=== PATIENT | female | born 1980 | race Caucasian/White ===

== ENCOUNTER 2017-02-05 12:31 | Emergency (ER) | payer MEDICAID, OTHER ==
[~2017-02-05] VITALS: Ht 160 cm; Wt 73.9 kg
[~2017-02-05 12:31] MED LIST: METF500T PO
[2017-02-05 13:01] VITALS: BP 97/77
--- NOTE | 2017-02-05 13:30 | NUR ---
PT BIB WITH C/O NECK PAIN BEHIND BOTH EARS 8/10 X 1WK WITH DIZZINESS WITH NAUSEA NO V/D; MID STERNAL PAIN @7PM STERNAL PAIN; JOI BREAST PAIN WHEN AMBULATING FAST.SKIN IS PINK/WARM/DRY; AAOX4 WITH EVEN AND STEADY GAIT; LUNGS CLEAR BL; HR EVEN AND REGULAR; PT DENIES ANY FEVER,COUGH AT THIS TIME; PATIENT STATES PAIN OF 9/10 AT THIS TIME;PATIENT POSITIONED FOR COMFORT; HOB ELEVATED; BEDRAILS UP X2; BED DOWN.
[2017-02-05 14:03] LABS: BASOPHILS # (AUTO) 0.1 K/uL (0.00-0.22); BASOPHILS % (AUTO) 0.7 % (0.0-2.0); EOSINOPHILS # (AUTO) 0.1 K/uL (0-0.4); EOSINOPHILS % (AUTO) 1.6 % (0.0-4.0); HEMATOCRIT 40.6 % (36-48); HEMOGLOBIN 13.7 g/dL (12.0-16.0); LYMPHOCYTES # (AUTO) 2.2 K/uL (2.5-16.5); LYMPHOCYTES % (AUTO) 26.8 % (20.5-51.1); MEAN CORPUSCULAR HEMOGLOBIN 32 pg (27-31); MEAN CORPUSCULAR HGB CONC 34 g/dL (33-37); MEAN CORPUSCULAR VOLUME 94 fL (80-94); MONOCYTES # (AUTO) 0.5 K/uL (0.8-1.0); MONOCYTES % (AUTO) 5.7 % (1.7-9.3); NEUTROPHILS # (AUTO) 5.4 K/uL (1.8-7.7); NEUTROPHILS % (AUTO) 65.2 % (42.2-75.2); PLATELET COUNT (AUTO) 200 K/uL (140-450); RED CELL DISTRIBUTION WIDTH 12.8 % (11.6-13.7); WHITE BLOOD COUNT (AUTO) 8.3 K/uL (4.8-10.8)
[2017-02-05 14:21] LABS: ANION GAP 10.4 (8-16); CALCIUM 7.9 mg/dL (8.5-10.1); CARBON DIOXIDE 28.6 mmol/L (21-32); CREATININE 0.6 mg/dL (0.6-1.3)
[2017-02-05 14:27] LABS: ALBUMIN 2.8 g/dL (3.4-5.0); TOTAL BILIRUBIN 0.3 mg/dL (0.0-1.0); TOTAL PROTEIN, SERUM 6.3 g/dL (6.4-8.2)
[2017-02-05 14:29] LABS: PARTIAL THROMBOPLASTIN TIME 22.2 secs (22-35.6); PROTHROMBIN TIME 9.9 secs (10.8-13.4)
--- NOTE | 2017-02-05 14:39 | NUR ---
PT RESTING ON BED;NO ACUTE DISTRESS NOTED;WILL CONTIUE TO MONITOR PT.
--- NOTE | 2017-02-05 15:18 | NUR ---
WENT TO CT SCAN ACCOMPANIED BY TECH.
--- NOTE | 2017-02-05 16:10 | NUR ---
PT RESTING ON BED;NO ACUTE DISTRESS NOTED;ALL MONITORS IN PLACED.
[2017-02-05 17:10] VITALS: BP 113/82
== END 2017-02-05 17:09 | disposition home or self-care (01) ==
LOC: MED 12:31
DX: R07.89 Other chest pain (principal); M43.6 Torticollis; E11.9 Type 2 diabetes mellitus without complications; F19.90 Other psychoactive substance use, unspecified, uncomplicated; Z88.5 Allergy status to narcotic agent; Z88.6 Allergy status to analgesic agent; Z88.3 Allergy status to other anti-infective agents; Z91.018 Allergy to other foods
CPT/HCPCS: 36415; 71010; 71275; 80053; 81002; 81025; 82009; 82948; 83880; 84484; 85025; 85379; 85610; 85730; 93005; 99285; Q0092; Q9967

== ENCOUNTER 2017-03-06 14:33 | Emergency (ER) | payer MEDICAID ==
[~2017-03-06] VITALS: Ht 160 cm; Wt 76.9 kg
[2017-03-06 14:38] VITALS: BP 90/65
--- NOTE | 2017-03-06 15:05 | NUR ---
Patient ambulated to bed 6 with family. RN evaluating patient at bedside.
--- NOTE | 2017-03-06 15:15 | NUR ---
36/F c/o left jaw/facial pain x1 week. Pt c/o pain to left jaw radiating up to left side of face, throbbing, intermittent, 10/10. Denies fever or chills. Denies N/V/D. No facial droop noted. Palliative Care Coordinator and pushes strong and equal bilaterally. VSS.
[2017-03-06 16:11] VITALS: BP 101/62
--- NOTE | 2017-03-06 16:13 | NUR ---
Patient discharged with v/s stable. Written and verbal after care instructions given and explained. Patient alert, oriented and verbalized understanding of instructions. Ambulatory with steady gait. All questions addressed prior to discharge. ID band removed. Patient advised to follow up with PMD. Rx of norco and amoxicillin given. Patient educated on indication of medication including possible reaction and side effects. Opportunity to ask questions provided and answered.
== END 2017-03-06 16:13 | disposition home or self-care (01) ==
LOC: MED 14:33
DX: K04.7 Periapical abscess without sinus (principal); E11.9 Type 2 diabetes mellitus without complications; Z91.018 Allergy to other foods; Z88.8 Allergy status to other drugs, medicaments and biological substances; Z79.84 Long term (current) use of oral hypoglycemic drugs
CPT/HCPCS: 82948; 99283

== ENCOUNTER 2017-05-31 17:49 | Inpatient (IN) | payer MEDICAID ==
[~2017-05-31] VITALS: Ht 162.6 cm; Wt 58.5 kg
[2017-05-31 17:54] VITALS: BP 187/65
--- NOTE | 2017-05-31 19:03 | NUR ---
PT PRESENTS TO ER FOR EVALUATION OF ABSCESS TO MID-BACK.SCAB NOTED AT THE BACK OF THE PT; HX OF DM.PT STATES SHE FALL IN THE BATHROOM. DENIES N/V/D; SKIN IS PINK/WARM/DRY; AAOX4 WITH EVEN AND STEADY GAIT; LUNGS CLEAR BL; HR EVEN AND REGULAR; PT DENIES ANY FEVER, CP, SOB, OR COUGH AT THIS TIME; PATIENT STATES PAIN OF 10/10 AT THIS TIME;PATIENT POSITIONED FOR COMFORT; HOB ELEVATED; BEDRAILS UP X2; BED DOWN.ALL MONITORS IN PLACED; ER MD MADE AWARE OF PT STATUS.
[2017-05-31] MEDS ORDERED: NACL 0.9% 2,000 ML IV ONE (19:09)
[2017-05-31] MEDS ORDERED: PIPERACILLIN/TAZOBACTAM 3.375 GM in DEXTROSE 5% 50 ML IV ONE (19:10)
[2017-05-31] MEDS ORDERED: CLINDAMYCIN 600 MG in DEXTROSE 5% 50 ML IV ONE (19:10)
--- NOTE | 2017-05-31 19:25 | NUR ---
Pt report given to ISRAEL ARDON. Transfer of care at this time.
--- NOTE | 2017-05-31 19:30 | NUR ---
Patient noted to have existing wounds upon arrival to ER. Photos taken of wound and placed in chart. Wound covered with dressing. Physician informed.
[2017-05-31] MEDS ORDERED: PIPERACILLIN/TAZOBACTAM 3.375 GM VIAL IV ONE (19:34)
[2017-05-31 19:49] LABS: HEMATOCRIT 38.5 % (36-48); MEAN CORPUSCULAR HEMOGLOBIN 31 pg (27-31); MEAN CORPUSCULAR HGB CONC 34 g/dL (33-37); MEAN CORPUSCULAR VOLUME 93 fL (80-94); PLATELET COUNT (AUTO) 227 K/uL (140-450); RED BLOOD CELL COUNT(AUTO) 4.17 MIL/uL (4.20-5.40); RED CELL DISTRIBUTION WIDTH 12.3 % (11.6-13.7); WHITE BLOOD COUNT (AUTO) 22.7 K/uL (4.8-10.8)
[2017-05-31] MEDS ORDERED: LIDOCAINE 1% ***ER ONLY *** 10 MG/ML VIAL INJ ONE (19:50)
[2017-05-31] MEDS ORDERED: ONDANSETRON 4 MG/2 ML VIAL IVP ONE (19:50)
[2017-05-31] MEDS ORDERED: HYDROmorphone 1 MG/ML AMP IVP ONE ×2 (19:50→20:30)
[2017-05-31] MEDS ORDERED: CLINDAMYCIN 600 MG/4 ML VIAL ONE (20:01)
[2017-05-31 20:12] LABS: LYMPHOCYTES % (MANUAL) 7 % (20-46); MONOCYTES % (MANUAL) 7 % (5-12)
[2017-05-31 20:13] LABS: PROTHROMBIN TIME 11.2 secs (10.8-13.4)
[2017-05-31 20:20] LABS: ANION GAP 18.3 (8-16); CARBON DIOXIDE 16.9 mmol/L (21-32); CREATININE 0.8 mg/dL (0.6-1.3); POTASSIUM 4.2 mmol/L (3.5-5.1); TOTAL BILIRUBIN 0.5 mg/dL (0.0-1.0)
[2017-05-31] MEDS ORDERED: INSULIN HUMAN REGULAR 100 UNITS/ML 10 ML VIAL IVP ONE (20:30)
[2017-05-31] MEDS ORDERED: NACL 0.9% 1,000 ML IV ONE ×2 (20:35→22:25)
[2017-05-31] MEDS ORDERED: INSULIN HUMAN REGULAR 100 UNITS in NACL 0.9% 100 ML IV ONE (20:50)
[2017-05-31 21:02] LABS: APPEARANCE,URINE SL CLOUDY (CLEAR); BILIRUBIN,URINE NEGATIVE (NEGATIVE); BLOOD, URINE 1+ (NEGATIVE); LEUKOCYTE ESTERASE ,URINE NEGATIVE (NEGATIVE); NITRITE, URINE NEGATIVE (NEGATIVE); PH,URINE 5.5 (5.0-9.0); UGLUCOSE 3+ (NEGATIVE)
[2017-05-31 21:03] LABS: COLOR,URINE STRAW (YELLOW)
[2017-05-31 21:15] LABS: RBC,URINE NONE SEEN /HPF (0-5)
[2017-05-31 21:16] LABS: WBC,URINE 0-5 (RARE) /HPF (0-5); YEAST,URINE Many /HPF (None Seen)
--- NOTE | 2017-05-31 21:25 | NUR ---
PT AT CT, VIA SMITH ACCOMPANIED BY NEW PATIENT ESCORT
--- NOTE | 2017-05-31 21:30 | NUR ---
Patient will be admitted to care of DR VAUGHAN. Admited to TELE 112A. Will go to room 112A. Belongings list completed. Report to SALLIE WOOD . TOLD SALLIE PT IS AT CT AND WAS ON INSULIN DRIP, PER MD DR LU REPEAT BLOOD SUGAR BEFORE ADMIT TO FLOOR AND D/C INSULIN DRIP. Addendum: 05/31/17 at 2202 by MEDND Patient will be admitted to care of DR VAUGHAN. Admited to TELE 112A. Will go to room 112A. Belongings list completed. Report to SALLIE WOOD . JANIS SALLIE PT IS AT CT AND WAS ON INSULIN DRIP, PER MD DR LU REPEAT CHEMISTRY AND BLOOD SUGAR BEFORE ADMIT TO FLOOR AND D/C INSULIN DRIP
[2017-05-31] MEDS: NACL 0.9% 1,000 ML IV SCH (22:38)
[2017-05-31 22:39] LABS: ANION GAP 12.2 (8-16); CREATININE 0.7 mg/dL (0.6-1.3); POTASSIUM 4.2 mmol/L (3.5-5.1)
[2017-05-31] MEDS ORDERED: DEXTROSE 50% 50 ML SYR IVP PRN (22:40)
[2017-05-31] MEDS ORDERED: ACETAMINOPHEN 325 MG TAB PO PRN (22:40)
[2017-05-31] MEDS ORDERED: ONDANSETRON 4 MG/2 ML VIAL IVP PRN (22:40)
[2017-05-31] MEDS ORDERED: LORazepam 2 MG/ML VIAL IVP PRN (22:40)
--- NOTE | 2017-05-31 22:50 | NUR ---
ASSUME CARE, PT ARRIVED ON UNIT ON GURNEY, PT STABLE, NO DISTRESS NOTED, AAOX4, IV TO THE R AC 18G SL PATENT, SKIN S/P INCISION AND DRAINAGE OF ABSCESS IN ER ON THE R UPPER BACK, MULTIPLE SCABS ON BACK, ALL SAFETY PRECAUTION ARE MET, INITIAL ASSESSMENT DONE, CALL LIGHT WITHIN REACH, WILL CONTINUE TO MONITOR.
[2017-05-31 23:32] VITALS: BP 93/61
[2017-05-31] MEDS: HYDROcodone/APAP 5/325 MG 1 TAB TAB PO PRN (23:55)
--- NOTE | 2017-05-31 23:55 | NUR ---
PAIN MEDICATION AND IVF GIVEN PER MD ORDER, PT SLEEPING, EASY TO AROUSE, NO DISTRESS NOTED, CALL LIGHT WITHIN REACH. WILL CONTINUE TO MONITOR.
[2017-06-01] VITALS: BP 118/77
--- NOTE | 2017-06-01 01:35 | NUR ---
AFTER PAIN MEDICATION, PT SLEEPING, NO DISTRESS NOTED, CALL LIGHT WITHIN REACH, WILL CONTINUE TO MONITOR.
[2017-06-01 04:05] VITALS: BP 91/60
[2017-06-01] MEDS ORDERED: CLINDAMYCIN 600 MG/4 ML VIAL ONE (04:39)
[2017-06-01] MEDS ORDERED: PIPERACILLIN/TAZOBACTAM 3.375 GM VIAL IV ONE (04:40)
--- NOTE | 2017-06-01 04:50 | NUR ---
MEDICATION GIVEN PER MD ORDER, PT TOLERATED WELL, PT SLEEPING, EASY TO AROUSE, NO DISTRESS NOTED, CALL LIGHT WITHIN REACH. WILL CONTINUE TO MONITOR.
[2017-06-01] MEDS ORDERED: CLINDAMYCIN 600 MG in DEXTROSE 5% 50 ML IV SCH (05:00)
[2017-06-01] MEDS ORDERED: PIPERACILLIN/TAZOBACTAM 3.375 GM in DEXTROSE 5% 50 ML IV SCH (05:00)
[2017-06-01] MEDS: BLOOD GLUCOSE MONITORING 1 DEV DEV FS SCH ×4 (05:42→20:20)
[2017-06-01] MEDS: INSULIN LISPRO SLIDING SCALE 100 UNITS/ML VIAL SUBQ PRN ×4 (05:47→20:23)
--- NOTE | 2017-06-01 06:07 | NUR ---
PT BLOOD SUGAR 283, 6UNITS OF INSULIN WAS GIVEN TO THE R UA, PT TOLERATED WELL, PT SLEEPING, NO DISTRESS NOTED, CALL LIGHT WITHIN REACH.
--- NOTE | 2017-06-01 07:19 | NUR ---
GAVE BEDSIDE REPORT TO DAY SHIFT NURSE, ASHOK PT STABLE, NO DISTRESS NOTED.
--- NOTE | 2017-06-01 07:20 | NUR ---
PT REPORT RECEIVED AT THE BEDSIDE. DRESSING NOTED ON THE BACK. DRESSING IS CLEAN AND DRY. IV NOTED ON THE RIGHT AC, RUNNING NS 100ML/HR. PT SHOWED NO S/S OF ACUTE DISTRESS. BED LOW, CALL LIGHT WITHIN REACH.
[2017-06-01 07:33] LABS: HEMATOCRIT 34.5 % (36-48); MEAN CORPUSCULAR HEMOGLOBIN 32 pg (27-31); MEAN CORPUSCULAR HGB CONC 35 g/dL (33-37); MEAN CORPUSCULAR VOLUME 92 fL (80-94); PLATELET COUNT (AUTO) 199 K/uL (140-450); RED BLOOD CELL COUNT(AUTO) 3.75 MIL/uL (4.20-5.40); RED CELL DISTRIBUTION WIDTH 12.6 % (11.6-13.7); WHITE BLOOD COUNT (AUTO) 27.7 K/uL (4.8-10.8)
[2017-06-01] MEDS: metFORMIN 500 MG TAB PO SCH ×2 (08:19→20:24)
[2017-06-01] MEDS: PIOGLITAZONE 30 MG TAB PO SCH (08:19)
[2017-06-01] MEDS: HYDROcodone/APAP 5/325 MG 1 TAB TAB PO PRN (08:19)
--- NOTE | 2017-06-01 09:05 | NUR ---
WOUND CARE EVALUATION NOTES: REASON FOR EVALUATION: BACK CELLULITIS COMPLETE SKIN ASSESSMENT DONE ON THIS 36 Y/O FE MALE PATIENT FROM HOME TO [facility], WITH INITIAL DIAGNOSIS OF BACK PAIN. PAST MEDICAL HISTORY INCLUDE DIABETES. ALL ABOVE INFORMATION WAS OBTAINED FROM THE ADMISSION H&P. AND PT. LABS ARE WBC 22.7, H/H 13.0/38.5 GLUCOSE 274, ALBUMIN 2.0 PT/INR 11.2/1.1. CURRENT MEDS INCLUDE PIPERACILLIN, CLINDAMYCIN, METFORMIN AND MORPHINE SULFATE. PATIENT IS AWAKE, ALERT, AND ABLE TO FOLLOW COMMANDS. SKIN WARM TO TOUCH WNL,TOENAILS SHORT AND CLEAN, BLE NO EDEMA, NO HAIR GROWTH AND BILATERAL PEDAL PULSES PRESENT. PLAN OF CARE DISCUSSED WITH PT. AND PRIMARY NURSE INTEGUMENTARY: MULTIPLE TATTOO TO DIFFERENT BODY PART, SKIN INTACT MULTIPLE DRY SMALL OLD HEALED SCAB SÁNCHEZ POSTERIOR BACK OLD HEALED SURGICAL SCAR MIDLINE BACK AROUND T1-T2 MIDLINE BACK TOWARD LEFT, ERYTHREDEMA, MOIST AND WARM TO TOUCH, REDNESS AREA MEASURED 10X10 CM, S/P I&D WAS DONE AT ER 05/31/2014 PT. REFUSES TO BE ASSESSED FRONT AND LOWER PARTS OF BODY INCLUDES ANUPAM-AREA. PT CLAIMS NO SKIN PROBLEM RECOMMENDATIONS: -SURGEON CONSULT -CLEANSE UPPER MIDLINE BACK CELLULITIS WITH NS. PAT DRY, APPLY ADAPTIC DRESSING AND COVER WITH ISLAND DRESSING QD AND PRN IF SOILING -TURN AND REPOSITION PATIENT Q2H TO LEFT AND RIGHT SIDE ONLY TO OFFLOAD UPPER BACK -CT TO SPINAL AREA WAS DONE -PRESSURE REDISTRIBUTION SURFACE THERAPY -KEEP SKIN CLEAN AND DRY AT ALL TIMES. RECOMMENDATIONS DISCUSSED WITH PRIMARY RN WILL FOLLOW UP PATIENT Q 7 -10 DAYS AND PRN. PLEASE CONTACT WOUND CARE NURSE FOR ANY CONCERNS AND CHANGES IN WOUND CONDITION
[2017-06-01 09:18] VITALS: BP 99/67
[2017-06-01 09:29] LABS: LYMPHOCYTES % (MANUAL) 5 % (20-46); MONOCYTES % (MANUAL) 7 % (5-12)
--- NOTE | 2017-06-01 09:35 | NUR ---
WOUND DRESSING CHANGED BY WOUND CARE NURSE HOLDEN AT BEDSIDE
[2017-06-01] MEDS: NACL 0.9% 1,000 ML IV SCH ×2 (09:50→18:38)
--- NOTE | 2017-06-01 09:52 | NUR ---
PATIENT HAS BEEN SCREENED AND CATEGORIZED HIGH NUTRITION RISK. PATIENT WILL BE SEEN WITHIN 1-2 DAYS OF ADMISSION. 06/01/17-06/02/[address]
--- NOTE | 2017-06-01 11:35 | NUR ---
CM NOTE PER AIR FILLER KEREN, REVIEWS SHOULD ONLY BE SENT TO [employer], TRACKING# [id number], FAX# [phone], ATTN: JUDITH BARBOSA # [phone]. INITIAL REVIEW FAXED TO [employer] TRACKING# [id number], FAX# [phone], ATTN: JUDITH BARBOSA # [phone].
[2017-06-01 12:10] VITALS: BP 92/59
[2017-06-01] MEDS: GAUZE TP SCH (13:00)
[2017-06-01] MEDS: COMPOSITE DRESSING TP SCH (13:00)
[2017-06-01] MEDS: MILD SOAP AND WATER TP SCH (13:00)
[2017-06-01] MEDS ORDERED: PIPER/TAZO 3.375GM/D5W PREMIX 50 ML IV SCH (13:00)
[2017-06-01] MEDS ORDERED: VANCOMYCIN PER PHARMACY MC PRN (13:10)
--- NOTE | 2017-06-01 13:27 | NUR ---
06/01/17 RD INITIAL ASSESSMENT COMPLETED PLEASE REFER TO NUTRITION ASSESSMENT UNDER CARE ACTIVITY FOR ESTIMATED NUTRITIONAL NEEDS. 1. CONTINUE 60 GMS CONSISTENT CARBOHYDRATE DIET 2. VITAMIN C FOR WOUND HEALING, 500 MG/DL X2 DAILY 3. PROVIDE NUTRITION EDUCATION NEEDED 4. ENCOURAGE INCREASED PO INTAKE TO TOLERANCE 5. RD TO FOLLOW UP WITHIN 2-3 DAYS; HIGH RISK ZENAIDA VASQUEZ, DIANN
[2017-06-01] MEDS: VANCOMYCIN HCL 750 MG in DEXTROSE 5% 250 ML IV SCH ×2 (14:51→21:12)
[2017-06-01 16:00] VITALS: BP 106/71
[2017-06-01] MEDS: MORPHINE SULFATE 2 MG/ML SYR IVP PRN ×2 (16:05→20:24)
--- NOTE | 2017-06-01 19:22 | NUR ---
PT REPORT GIVEN TO LEAVE SPECIALIST AT BEDSIDE. PT IS IN STABLE CONDITION WITHOUT ACUTE DISTRESS.
--- NOTE | 2017-06-01 19:30 | NUR ---
RECEIVED REPORT FROM DAY RN. PATIENT RESTING IN BED, DENIES PAIN AT THIS TIME. NO S/S OF DISTRESS NOTED, RESPIRATION EVEN AND UNLABORED, IV PATENT AND INTACT, INFUSING NS AT 100ML/HR, PLAN OF CARE DISCUSSED, VERBALIZED UNDERSTANDING. CALL LIGHT WITHIN REACH, SAFETY MEASURE ENSURED, WILL CONTINUE TO MONITOR.
[2017-06-01 19:58] VITALS: BP 94/57
--- NOTE | 2017-06-01 22:18 | NUR ---
CHANGED IV DRESSING, IV PATENT AND INTACT. PATIENT RESTING IN BED, NO S/S OF DISTRESS NOTED, WILL CONTINUE TO MONITOR.
[2017-06-02] VITALS: BP 102/65
--- NOTE | 2017-06-02 00:05 | NUR ---
PATIENT IS SLEEPING, NO S/S OF ACUTE DISTRESS NOTED, RESPIRATION EVEN AND UNLABORED, CALL LIGHT WITHIN REACH, SAFETY MEASURE ENSURED, WILL CONTINUE TO MONITOR.
[2017-06-02] MEDS: MILD SOAP AND WATER TP SCH ×3 (01:00→21:22)
--- NOTE | 2017-06-02 01:08 | NUR ---
DRESSING CHANGED, WOUND ASSESSMENT DONE, WILL CONTINUE TO MONITOR.
[2017-06-02] MEDS: MORPHINE SULFATE 2 MG/ML SYR IVP PRN (01:47)
--- NOTE | 2017-06-02 01:52 | NUR ---
PATIENT STATED," PAIN 7/10 AT THE INCISION SITE." BP 96/59, HR 112. MORPHINE GIVEN ORDERED. WILL CONTINUE TO MONITOR.
--- NOTE | 2017-06-02 03:55 | NUR ---
VITAL SIGNS WITHIN NORMAL RANGE, NO CHANGE IN CONDITION. PATIENT IS SLEEPING AT THIS TIME. WILL CONTINUE TO MONITOR.
[2017-06-02 03:56] VITALS: BP 91/58
[2017-06-02] MEDS: NACL 0.9% 1,000 ML IV SCH ×3 (04:43→23:59)
[2017-06-02] MEDS: VANCOMYCIN HCL 750 MG in DEXTROSE 5% 250 ML IV SCH (05:07)
--- NOTE | 2017-06-02 05:16 | NUR ---
VANCOMYCIN STARTED, PATIENT TOLERATED WELL. RESPIRATION EVEN AND UNLABORED, WILL CONTINUE TO MONITOR.
[2017-06-02 05:49] LABS: HEMATOCRIT 32.3 % (36-48); HEMOGLOBIN 11.3 g/dL (12.0-16.0); MEAN CORPUSCULAR HEMOGLOBIN 32 pg (27-31); MEAN CORPUSCULAR HGB CONC 35 g/dL (33-37); MEAN CORPUSCULAR VOLUME 92 fL (80-94); PLATELET COUNT (AUTO) 208 K/uL (140-450); RED BLOOD CELL COUNT(AUTO) 3.52 MIL/uL (4.20-5.40); RED CELL DISTRIBUTION WIDTH 12.5 % (11.6-13.7); WHITE BLOOD COUNT (AUTO) 19.6 K/uL (4.8-10.8)
[2017-06-02 06:00] LABS: ANION GAP 15.3 (8-16); CARBON DIOXIDE 19.3 mmol/L (21-32); CREATININE 0.5 mg/dL (0.6-1.3); POTASSIUM 3.6 mmol/L (3.5-5.1)
[2017-06-02] MEDS: BLOOD GLUCOSE MONITORING 1 DEV DEV FS SCH ×4 (06:32→20:09)
[2017-06-02] MEDS: INSULIN LISPRO SLIDING SCALE 100 UNITS/ML VIAL SUBQ PRN ×4 (06:34→20:13)
--- NOTE | 2017-06-02 06:58 | NUR ---
PATIENT IS SLEEPING AT THIS TIME. NO S/S OF DISTRESS NOTED, RESPIRATION EVEN AND UNLABORED, CALL LIGHT WITHIN REACH, SAFETY MEASURE ENSURED, WILL CONTINUE TO MONITOR.
[2017-06-02 07:15] LABS: LYMPHOCYTES % (MANUAL) 5 % (20-46); MONOCYTES % (MANUAL) 5 % (5-12)
--- NOTE | 2017-06-02 07:15 | NUR ---
RECEIVED PT REPORT AT BEDSIDE FROM BIOINFORMATICIAN. PT IS AOX4. PT SHOWS NO S/S OF ACUTE DISTRESS ON RA. PT DENIES DIZZINESS. PT IS ON TELE MONITOR. IV NOTED ON THE R AC WITH NS INFUSING WELL. DRESSING ON THE BACK IS SATURATED WITH BROWN DRAINAGE AND WITH MILD ODOR. PT C/O ABOUT BACK PAIN 02/15, WILL MEDICATE. BED LOWERED, WITH CALL LIGHT WITHIN REACH. WILL CONTINUE TO MONITOR.
--- NOTE | 2017-06-02 07:20 | NUR ---
ENDORSED PLAN OF CARE TO DAY RN. PATIENT IS IN STABLE CONDITION. NO S/S OF DISTRESS.
[2017-06-02 08:05] VITALS: BP 96/65
--- NOTE | 2017-06-02 08:08 | NUR ---
SPOKE WITH DR RIVERA AND INFORMED HIM ABOUT THE CONSULTATION ORDER. ORDERS PATIENT TO BE NPO. TO SEE THE PATIENT LATER TODAY
--- NOTE | 2017-06-02 08:17 | NUR ---
NOTIFIED DR CARRANZA ABOUT THE CONSULT ORDER. PATIENT'S FACE SHEET FAXED
[2017-06-02] MEDS: ASCORBIC ACID 500 MG TAB PO SCH (08:27)
[2017-06-02] MEDS: PIOGLITAZONE 30 MG TAB PO SCH (08:28)
[2017-06-02] MEDS: HYDROcodone/APAP 5/325 MG 1 TAB TAB PO PRN ×3 (08:28→23:59)
[2017-06-02] MEDS: metFORMIN 500 MG TAB PO SCH ×2 (08:28→20:09)
--- NOTE | 2017-06-02 08:40 | NUR ---
WOUND CLEANSED WITH NS. PATTED DRY WITH GAUZE. WOUND COVERED ADAPTIC DRESSING, GAUZE AND COMPOSITE DRESSING.
--- NOTE | 2017-06-02 09:22 | NUR ---
JUDITH NOTE CONCURRENT REVIEW FAXED TO [facility]# [id number], FAX# [phone], ATTN: JUDITH BARBOSA # [phone]. LEFT SEVERAL MESSAGES ON THE VOICEMAIL OF JUDITH BARBOSA SINCE YESTERDAY, NO CALL BACK.
--- NOTE | 2017-06-02 11:45 | NUR ---
PT SEEN BY DR RIVERA. PER DR RIVERA, KEEP PT NPO. POSSIBLE I/D TODAY AT 1930. PT NOTIFIED AND VERBALIZED UNDERSTANDING. CONSENT OBTAINED AND FILED IN THE CHART
[2017-06-02 12:00] VITALS: BP 92/58
[2017-06-02] MEDS: GAUZE TP SCH ×2 (13:07→21:23)
[2017-06-02] MEDS: COMPOSITE DRESSING TP SCH ×2 (13:07→21:23)
[2017-06-02] MEDS: VANCOMYCIN 1GM/DEXT 5% PREMIX 200 ML IV SCH ×2 (15:59→21:10)
[2017-06-02 16:00] VITALS: BP 94/57
--- NOTE | 2017-06-02 16:30 | NUR ---
WOUND CLEANSED W/ NS, PATTED DRY W/ GAUZE. SEROSANGUINEOUS DRAINAGE AND MILD ODOR. COVERED WOUND W/ ADAPTIC, GAUZE, AND COMPOSITE DRESSING.
--- NOTE | 2017-06-02 19:27 | NUR ---
ENDORSED PT TO COMMERCIAL AIRLINE PILOT. PT REPORT GIVEN AT BEDSIDE. PT IS SLEEPING AND IN STABLE CONDITION.
--- NOTE | 2017-06-02 19:30 | NUR ---
RECEIVED REPORT FROM AM NURSE. PT RESTING IN BED, AOX4, AMBULATORY, ABLE TO VERBALIZE NEEDS. PT DENIES CHEST PAIN, SOB OR S/S OF ACUTE DISTRESS. PT C/O PAIN, PT ALREADY MEDICATED BY AM NURSE, WILL MONITOR PAIN. DISEASE CASE MANAGER IN PLACE. DRESSING TO BACK IS SLIGHTLY SOILED, WILL PERFORM WOUND CARE AND CHANGE DRESSING ORDERED. IV ACCESS ASYMPTOMATIC, PATENT AND INTACT. IVF INFUSING WELL. DISCUSSED AND REVIEWED PLAN OF CARE WITH PT. PT INSTRUCTED TO BE NPO AT MIDNIGHT. PT VERBALIZED UNDERSTANDING. ALL NEEDS MET. SAFETY MEASURES ENSURED. CALL LIGHT WITHIN REACH. WILL CONTINUE TO MONITOR.
[2017-06-02 20:00] VITALS: BP 103/60
--- NOTE | 2017-06-02 20:14 | NUR ---
ADMINISTERED DUE MED WITH EDUCATION. ADMINISTERED INSULIN COVERAGE WITH EVENING SNACK AND EDUCATION. PT VERBALIZED UNDERSTANDING, TOLERATED MEDS WELL. ALL NEEDS MET. IVF INFUSING WELL. SAFETY MEASURES ENSURED. CALL LIGHT WITHIN REACH. WILL CONTINUE TO MONITOR.
--- NOTE | 2017-06-02 21:20 | NUR ---
ADMINISTERED DUE MED WITH EDUCATION. PT VERBALIZED UNDERSTANDING, TOLERATED MEDS WELL. PT ABLE TO AMBULATE INDEPENDENTLY TO RESTROOM WITH STEADY GAIT. DRESSING TO BACK WOUND IS SOILED, WOUND IS CLEANSED AND DRESSING IS CHANGED ORDERED. ALL NEEDS MET. IVPB INFUSING WELL. SAFETY MEASURES ENSURED. CALL LIGHT WITHIN REACH. WILL CONTINUE TO MONITOR.
[2017-06-03] VITALS: BP 100/62
--- NOTE | 2017-06-03 00:02 | NUR ---
PT C/O PAIN. SEE PAIN ASSESSMENT. ADMINISTERED NORCO PO PRN ORDERED. TEMP 100.6, COOLING MEASURES ENSURED, ADMINISTERED TYLENOL PO PRN ORDERED. ALL NEEDS MET. IVF INFUSING WELL. SAFETY MEASURES ENSURED. CALL LIGHT WITHIN REACH. WILL CONTINUE TO MONITOR.
--- NOTE | 2017-06-03 03:31 | NUR ---
PT SLEEPING COMFORTABLY, AROUSABLE BY NAME, NO S/S OF ACUTE DISTRESS. TEMP 98, CONDITION STABLE. ALL NEEDS MET. IVF INFUSING WELL. SAFETY MEASURES ENSURED. CALL LIGHT WITHIN REACH. WILL CONTINUE TO MONITOR.
[2017-06-03 04:00] VITALS: BP 94/56
[2017-06-03] MEDS: VANCOMYCIN 1GM/DEXT 5% PREMIX 200 ML IV SCH ×3 (05:20→21:07)
[2017-06-03 05:44] LABS: HEMATOCRIT 34.4 % (36-48); HEMOGLOBIN 11.8 g/dL (12.0-16.0); MEAN CORPUSCULAR HEMOGLOBIN 32 pg (27-31); MEAN CORPUSCULAR HGB CONC 34 g/dL (33-37); MEAN CORPUSCULAR VOLUME 92 fL (80-94); PLATELET COUNT (AUTO) 238 K/uL (140-450); RED BLOOD CELL COUNT(AUTO) 3.76 MIL/uL (4.20-5.40); RED CELL DISTRIBUTION WIDTH 12.8 % (11.6-13.7); WHITE BLOOD COUNT (AUTO) 12.6 K/uL (4.8-10.8)
[2017-06-03 05:58] LABS: CARBON DIOXIDE 27.5 mmol/L (21-32); CREATININE 0.5 mg/dL (0.6-1.3); POTASSIUM 3.5 mmol/L (3.5-5.1)
[2017-06-03] MEDS: BLOOD GLUCOSE MONITORING 1 DEV DEV FS SCH ×5 (06:16→21:07)
[2017-06-03] MEDS: INSULIN LISPRO SLIDING SCALE 100 UNITS/ML VIAL SUBQ PRN ×4 (06:19→21:18)
--- NOTE | 2017-06-03 06:20 | NUR ---
INSULIN COVERAGE ADMINISTERED WITH EDUCATION. PT VERBALIZED UNDERSTANDING, TOLERATED MED WELL. ALL NEEDS MET. IVF INFUSING WELL. SAFETY MEASURES ENSURED. CALL LIGHT WITHIN REACH. WILL CONTINUE TO MONITOR.
--- NOTE | 2017-06-03 07:00 | NUR ---
DRESSING TO BACK IS SOILED WITH LARGE DRAINAGE, WOUND CARE PERFORMED AND DRESSING CHANGED ORDERED. PT TOLERATED WELL.
--- NOTE | 2017-06-03 07:12 | NUR ---
PT TAKEN TO OR BY OR NURSE AT THIS TIME.
[2017-06-03 07:16] LABS: LYMPHOCYTES % (MANUAL) 13 % (20-46); MONOCYTES % (MANUAL) 4 % (5-12)
--- NOTE | 2017-06-03 07:30 | NUR ---
PT OFF UNIT TO SURGERY.
--- NOTE | 2017-06-03 07:30 | NUR ---
ENDORSED PLAN OF CARE TO AM NURSE. PT IS IN THE OR AT THIS TIME.
[2017-06-03] MEDS ORDERED: MIDAZOLAM 2 MG/2 ML VIAL ONE (07:48)
[2017-06-03] MEDS ORDERED: fentaNYL 0.05 MG/ML VIAL ONE (07:48)
[2017-06-03] MEDS ORDERED: MEPERIDINE 50 MG/ML SYR ONE (07:49)
[2017-06-03] MEDS ORDERED: PROPOFOL 200 MG/20 ML VIAL IV ONE (08:30)
[2017-06-03] MEDS ORDERED: SEVOFLURANE 250 ML BTL INH ONE (08:30)
[2017-06-03] MEDS: metFORMIN 500 MG TAB PO SCH ×2 (09:00→21:07)
[2017-06-03] MEDS: PIOGLITAZONE 30 MG TAB PO SCH (09:00)
[2017-06-03] MEDS: ASCORBIC ACID 500 MG TAB PO SCH (09:00)
[2017-06-03] MEDS ORDERED: NACL 0.9% 1,000 ML IV SCH (09:16)
[2017-06-03] MEDS ORDERED: ONDANSETRON 4 MG/2 ML VIAL IVP PRN (09:20)
[2017-06-03] MEDS ORDERED: MEPERIDINE 25 MG/ML SYR IVP PRN (09:20)
[2017-06-03] MEDS ORDERED: BLOOD GLUCOSE MONITORING 1 DEV DEV FS ONE (09:20)
[2017-06-03] MEDS ORDERED: HYDROmorphone 1 MG/ML AMP IVP PRN (09:20)
[2017-06-03] MEDS ORDERED: diphenhydrAMINE 50 MG/ML VIAL IVP PRN (09:20)
--- NOTE | 2017-06-03 09:24 | NUR ---
CM NOTE CONCURRENT REVIEW FAXED TO [employer] [facility]# [id number], FAX# [phone], ATTN: JUDITH BARBOSA # [phone].
[2017-06-03] MEDS ORDERED: LIDOCAINE 1% 50 ML ONE (09:26)
[2017-06-03 10:20] VITALS: BP 104/69
--- NOTE | 2017-06-03 10:20 | NUR ---
RECEIVED PT BACK FROM SURGERY IN STABLE CONDITION S/O INCISION AND DRAINAGE OF BACK ABSCESS. PT AAOX4. NO SOB NOTED. NO C/O PAIN AT THIS TIME. IV TO RT HAND PATENT AND INTACT. CHEST CLEAR. ABDOMEN SOFT, BOWEL SOUNDS PRESENT. DRESSING TO UPPER BACK DRY AND INTACT. INSTRUCTED PT TO TURN TO SIDES Q2 HRS. NO EDEMA NOTED ON BLE. INSTRUCTED PT CALL FOR ASSISTANCE, CALL LIGHT WITHIN REACH. PT VERBALIZED UNDERSTANDING.
[2017-06-03 12:00] VITALS: BP 98/65
--- NOTE | 2017-06-03 12:25 | NUR ---
ICE CHIPS TOLERATED
[2017-06-03] MEDS: MILD SOAP AND WATER TP SCH ×2 (13:00)
[2017-06-03] MEDS: COMPOSITE DRESSING TP SCH (13:00)
[2017-06-03] MEDS: GAUZE TP SCH (13:00)
--- NOTE | 2017-06-03 13:25 | NUR ---
06/03/17 RD FOLLOW-UP ASSESSMENT COMPLETED 1. CONTINUE CLEAR LIQUID DIET 2. CONTINUE VITAMIN C 3. WHEN MEDICALLY FEASIBLE, INITIATE 60 GMS CONSISTENT CARBOHYDRATE DIET 4. RD TO FOLLOW UP WITHIN 2-3 DAYS; HIGH RISK ZENAIDA VASQUEZ RD
[2017-06-03 16:00] VITALS: BP_SYST 148; BP_SYST 95; BP_DIAS 71; BP_DIAS 76
--- NOTE | 2017-06-03 16:47 | NUR ---
pATIENT TOLERATING CLEAR LIQUIDS NO NAUSEA AND VOMITING NOTED , DIET ADVANCED ORDERED.
[2017-06-03] MEDS: HYDROcodone/APAP 5/325 MG 1 TAB TAB PO PRN ×2 (17:40→23:42)
--- NOTE | 2017-06-03 19:27 | NUR ---
PT RESTING. NO SOB NOTED. NO SIGNS OF PAIN AT THIS TIME. WILL ENDORSE TO NEXT SHIFT NURSE FOR CONTINUITY OF CARE.
--- NOTE | 2017-06-03 19:30 | NUR ---
RECEIVED REPORT FROM AM NURSE. PT RESTING IN BED, AOX4, AMBULATORY, ABLE TO VERBALIZE NEEDS. PT DENIES CHEST PAIN, SOB OR S/S OF ACUTE DISTRESS. PT C/O PAIN ON BACK, PT ALREADY MEDICATED BY AM NURSE, WILL MONITOR PAIN. DRESSING TO BACK IS SATURATED WITH LARGE DRAINAGE, MARKED AREA WITH BLACK MARKER, WILL MONITOR SPREAD. PT REPORTS BEING ABLE TO TOLERATE FOOD, REPORTS NO NAUSEA/VOMITING. IV ACCESS ASYMPTOMATIC, PATENT AND INTACT. IVF INFUSING WELL. DISCUSSED AND REVIEWED PLAN OF CARE WITH PT. PT VERBALIZED UNDERSTANDING. ALL NEEDS MET. SAFETY MEASURES ENSURED. CALL LIGHT WITHIN REACH. WILL CONTINUE TO MONITOR.
[2017-06-03 20:00] VITALS: BP 94/64
--- NOTE | 2017-06-03 21:18 | NUR ---
INSULIN COVERAGE ADMINISTERED WITH EVENING SNACK AND EDUCATION. ADMINISTERED DUE MEDS WITH EDUCATION, PT VERBALIZED UNDERSTANDING, TOLERATED MEDS WELL. ALL NEEDS MET. IVPB INFUSING WELL. SAFETY MEASURES ENSURED. CALL LIGHT WITHIN REACH. WILL CONTINUE TO MONITOR.
--- NOTE | 2017-06-03 23:42 | NUR ---
PT C/O PAIN ON BACK. SEE PAIN ASSESSMENT. ADMINISTERED NORCO PO PRN ORDERED WITH EDUCATION. PT VERBALIZED UNDERSTANDING, TOLERATED MED WELL. DUE WOUND CARE AND CLEANSING NOT PERFORMED AT THIS TIME DUE TO PT S/P I&D TODAY. DRESSING TO BACK IS DRY AND INTACT, WITH DRAINAGE OUTLINED, WILL MONITOR. ALL NEEDS MET. IVF INFUSING WELL, TKO. SAFETY MEASURES ENSURED. CALL LIGHT WITHIN REACH. WILL CONTINUE TO MONITOR.
[2017-06-04] VITALS: BP 105/68
[2017-06-04] MEDS: MILD SOAP AND WATER TP SCH ×2 (00:46→12:56)
--- NOTE | 2017-06-04 02:11 | NUR ---
PT SLEEPING COMFORTABLY, NO S/S OF ACUTE DISTRESS. ALL NEEDS MET. IVF INFUSING WELL, TKO. SAFETY MEASURES ENSURED. CALL LIGHT WITHIN REACH. WILL CONTINUE TO MONITOR.
[2017-06-04 05:44] LABS: BASOPHILS # (AUTO) 0.1 K/uL (0.00-0.22); BASOPHILS % (AUTO) 0.9 % (0.0-2.0); EOSINOPHILS # (AUTO) 0.1 K/uL (0-0.4); EOSINOPHILS % (AUTO) 1.4 % (0.0-4.0); HEMATOCRIT 32.6 % (36-48); HEMOGLOBIN 11.2 g/dL (12.0-16.0); LYMPHOCYTES # (AUTO) 1.6 K/uL (2.5-16.5); LYMPHOCYTES % (AUTO) 19.2 % (20.5-51.1); MEAN CORPUSCULAR HEMOGLOBIN 31 pg (27-31); MEAN CORPUSCULAR HGB CONC 34 g/dL (33-37); MEAN CORPUSCULAR VOLUME 91 fL (80-94); MONOCYTES # (AUTO) 0.4 K/uL (0.8-1.0); MONOCYTES % (AUTO) 5.4 % (1.7-9.3); NEUTROPHILS # (AUTO) 5.9 K/uL (1.8-7.7); NEUTROPHILS % (AUTO) 73.1 % (42.2-75.2); PLATELET COUNT (AUTO) 235 K/uL (140-450); RED BLOOD CELL COUNT(AUTO) 3.57 MIL/uL (4.20-5.40); RED CELL DISTRIBUTION WIDTH 12.8 % (11.6-13.7); WHITE BLOOD COUNT (AUTO) 8.1 K/uL (4.8-10.8)
[2017-06-04 06:08] LABS: ANION GAP 7.5 (8-16); CARBON DIOXIDE 28.8 mmol/L (21-32); CREATININE 0.5 mg/dL (0.6-1.3); POTASSIUM 3.3 mmol/L (3.5-5.1)
[2017-06-04] MEDS: VANCOMYCIN 1GM/DEXT 5% PREMIX 200 ML IV SCH ×3 (06:13→21:53)
[2017-06-04] MEDS: BLOOD GLUCOSE MONITORING 1 DEV DEV FS SCH ×4 (06:15→20:36)
[2017-06-04] MEDS: INSULIN LISPRO SLIDING SCALE 100 UNITS/ML VIAL SUBQ PRN ×4 (06:20→20:40)
--- NOTE | 2017-06-04 06:20 | NUR ---
INSULIN COVERAGE ADMINISTERED WITH EDUCATION. DUE MED ADMINISTERED WITH EDUCATION. PT VERBALIZED UNDERSTANDING, TOLERATED MEDS WELL. ALL NEEDS MET. IVPB INFUSING WELL. SAFETY MEASURES ENSURED. CALL LIGHT WITHIN REACH. WILL CONTINUE TO MONITOR.
--- NOTE | 2017-06-04 07:15 | NUR ---
ENDORSED PLAN OF CARE TO AM NURSE. CONDITION STABLE.
--- NOTE | 2017-06-04 07:16 | NUR ---
RECEIVED REPORT FROM METAL CANS SUPERVISOR NURSE SOPHIE AT BEDSIDE. INTRODUCED SELF AND UPDATED BOARD. PT IS LYING IN BED RIGHT NOW. BED IN LOW POSITION. CALL LIGHT WITHIN REACH. WILL CONTINUE WITH CURRENT PLAN OF CARE AND MONITOR PT.
[2017-06-04 08:00] VITALS: BP 107/69
[2017-06-04] MEDS: PIOGLITAZONE 30 MG TAB PO SCH (08:23)
[2017-06-04] MEDS: ASCORBIC ACID 500 MG TAB PO SCH (08:23)
[2017-06-04] MEDS: metFORMIN 500 MG TAB PO SCH ×2 (08:24→20:43)
[2017-06-04] MEDS: HYDROcodone/APAP 5/325 MG 1 TAB TAB PO PRN ×3 (08:24→21:53)
--- NOTE | 2017-06-04 08:24 | NUR ---
ADMINISTERED SCHEDULED MEDS TO PT. PROVIDED DM TEACHING AND MED SIDE EFFECTS INFORMATION. PT VERBALIZED UNDERSTANDING. PT STATED PAIN 6/10 ON BACK ADMINISTERED NORCO FOR PAIN. PROVIDED MED AND SIDE EFFECT TEACHING. PT TOLERATED MEDS WELL. NO COMPLAINTS AT THIS TIME. WILL CONTINUE TO MONITOR.
[2017-06-04] MEDS ORDERED: POTASSIUM CHLORIDE 10 MEQ TABER PO SCH (09:30)
[2017-06-04] MEDS: HYDROmorphone 1 MG/ML AMP IVP PRN (11:29)
--- NOTE | 2017-06-04 11:30 | NUR ---
CHECKED ON PT IN ROOM. PT AMBULATED TO BATHROOM WITH STEADY GAIT. PT DENIES PAIN AT THIS TIME. PT REQUESTED A SANDWICH FOR SNACK. INFORMED PT THAT SHE [facility] AND NO SANDWICH CAN BE GIVEN AT THIS TIME AND THAT LUNCH TRAY WILL BE ARRIVING. EDUCATED PT ON FOLLOWING DIET FOR BS CONTROL. PT VERBALIZED UNDERSTANDING. NO OTHER COMPLAINTS AT THIS TIME WILL CONTINUE TO MONITOR.
--- NOTE | 2017-06-04 12:40 | NUR ---
WOUND CARE RE- EVALUATION NOTES: REASON FOR RE-EVALUATION: S/P DEBRIDEMENT TO BACK CELLULITIS COMPLETE SKIN ASSESSMENT DONE ON THIS 36 Y/O FE MALE PATIENT FROM HOME TO [facility], WITH INITIAL DIAGNOSIS OF BACK PAIN. PAST MEDICAL HISTORY INCLUDE DIABETES. ALL ABOVE INFORMATION WAS OBTAINED FROM THE ADMISSION H&P. AND PT. LABS ARE WBC 8.1, H/H 11.2/32.6 GLUCOSE 275, ALBUMIN 2.0. CURRENT MEDS INCLUDE VANCOMYCIN METFORMIN AND HYDROMORPHONE. PATIENT IS AWAKE, ALERT, AND ABLE TO FOLLOW COMMANDS. SKIN WARM TO TOUCH WNL,TOENAILS SHORT AND CLEAN, BLE NO EDEMA, NO HAIR GROWTH AND BILATERAL PEDAL PULSES PRESENT. PLAN OF CARE DISCUSSED TO PRIMARY RN AND PT. WITH WOUND CARE INSTRUCTIONS GIVEN. PT VERBALIZES UNDERSTANDING INTEGUMENTARY: MULTIPLE TATTOO TO DIFFERENT BODY PART, SKIN INTACT MULTIPLE DRY SMALL OLD HEALED SCAB SÁ[place]HEZ POSTERIOR BACK OLD HEALED SURGICAL SCAR MIDLINE BACK AROUND T1-T2 MIDLINE BACK TOWARD LEFT,S/P DEBRIDEMENT SURGICAL INCISION WOUND 7X2.5X3 CM WITH UNDERMINING 9 O'CLOCK TO 3 O'CLOCK AND DEEPEST AT 10 O'CLOCK 4CM, WOUND BED RED, CLEAN WITH SMALL AMOUNT SANGUINOUS DRAINAGE, NO ODOR, PERIWOUND PALE PINK RECOMMENDATIONS: -CLEANSE UPPER MIDLINE BACK SURGICAL WOUND WITH NS. PAT DRY, PACK WITH IODOFORM AND APPLY Z-GUARD TO ANUPAM-WOUND, COVER WITH ADAPTIC DRESSING AND ABD PAD QD AND PRN IF SOILING -TURN AND REPOSITION PATIENT Q2H TO LEFT AND RIGHT SIDE ONLY TO OFFLOAD UPPER BACK -PRESSURE REDISTRIBUTION SURFACE THERAPY -KEEP SKIN CLEAN AND DRY AT ALL TIMES. -HOME HEALTH TO FOLLOW UP FOR WOUND CARE RECOMMENDATIONS DISCUSSED WITH PRIMARY RN AND METALS SALES REPRESENTATIVE Addendum: 06/04/17 at 1307 by Ruslan Chang RN (Grace) WOUND CARE QD X 2 WEEKS
[2017-06-04] MEDS: COMPOSITE DRESSING TP SCH (12:56)
[2017-06-04] MEDS: GAUZE TP SCH (12:56)
[2017-06-04] MEDS ORDERED: ABDOMINAL PAD TP PRN (13:10)
[2017-06-04] MEDS ORDERED: GAUZE TP PRN (13:10)
[2017-06-04] MEDS ORDERED: Z-GUARD PASTE TP PRN (13:10)
[2017-06-04] MEDS ORDERED: NON ADHERENT DRESSING TP PRN (13:10)
--- NOTE | 2017-06-04 13:39 | NUR ---
CM NOTE CONCURRENT REVIEW AND ORDER FOR [place] [facility] FOR WOUND CARE FAXED TO [facility]# [id number], FAX# [phone], ATTN: JUDITH GUERREROPADILLAABE BARBOSA PH# [phone]. SPOKE WITH JUDITH CAUSEY OF [facility] AND INFORMED HER OF [facility]OUND [facility]ARE ORDER. PER JUDITH CAUSEY, THEY DON'T HAVE MUCH CONTRACTED HOME HEALTH THAT SERVICE THE [facility]. SHE SAID TO CALL DIFFERENT HOME HEALTH AGENCIES AND ASK THEM IF THEY HAVE A CONTRACT WITH [facility]. CALLED THE FOLLOWING HOME HEALTH: *SPOKE WITH JORDAN OF [facility] PH# [phone] WHO SAID THEY HAVE NO CONTRACT WITH [facility] AND CANNOT TAKE THE PATIENT *SPOKE WITH [facility] PH# [phone] WHO SAID THEY DO NOT TAKE [facility] PATIENTS *SPOKE WITH PHILLY OF [facility] PH# [phone] WHO SAID THEY DO NOT TAKE [facility] PATIENTS *SPOKE WITH [facility] pH# [phone] AND SHE SAID THEY DO NOT TAKE [facility] PATIENTS CALLED BACK JUDITH CAUSEY OF [facility] TO REQUEST FOR A LIST OF THEIR CONTRACTED HOME HEALTH AGENCIES. RECEIVED FAX OF LIST OF HOME HEALTH. CALLED THE FOLLOWING HOME HEALTH ON THE LIST RECEIVED FROM JUDITH CAUSEY OF [facility]: *SPOKE WITH [facility] PH# [phone] WHO SAID THEY DO NOT ACCEPT [facility] PLAN *SPOKE WITH DONNA OF [facility] PH# [phone] WHO SAID THEY DO NOT TAKE [facility] *SPOKE WITH BONITA OF [facility] PH# [phone] AND SHE SAID THEY CAN TAKE THE PATIENT. FAXED HER THE FACESHEET, ORDER, PROCEDURE REPORT AND WOUND CARE NURSE NOTES AND INFORMED HER THAT [facility] JUDITH CAUSEY IS WAITING FOR THEM TO FAX THE REQUEST TO HER. INFORMED JUDITH RODRIGUES [facility] OF THE ACCEPTING HOME HEALTH AND SHE SAID SHE WILL FAX THE AUTHORIZATION TO [facility] ONCE SHE RECEIVES THE FAXED REQUEST FROM THEM. CHARGE NURSE MICHAEL AWARE AND CHARGE NURSE MICHAEL ALSO AWARE TO GIVE PATIENT WOUND CARE SUPPLIES WHEN DISCHARGED.
--- NOTE | 2017-06-04 15:04 | NUR ---
JUDITH BECKMAN RECEIVED A CALL FROM JUDITH CAUSEY OF [facility] AND SHE SAID SHE CANNOT AUTHORIZE THE HOME HEALTH BECAUSE IT'S THE MEDICAL GROUP'S RESPONSIBILITY. SHE GAVE ME THE NUMBER TO THE MEDICAL GROUP [facility]# [phone] AND TOLD ME TO CALL THE MEDICAL GROUP AND TELL THEM THAT THEY ARE THE ONE RESPONSIBLE FOR THE PATIENT'S HOME HEALTH. SPOKE WITH LAN OF [facility]# [phone] AND INFORMED HER THAT THERE WAS SO MUCH CONFUSION WITH THE PATIENT'S INSURANCE AND THAT WE JUST FOUND OUT THAT THE PATIENT HAS A MEDICAL GROUP AND THAT THEY ARE RESPONSIBLE FOR THE HOME HEALTH. PER LAN, [facility] IS RESPONSIBLE TO GIVE THE AUTHORIZATION FOR THE HOME HEALTH AND NOT THE MEDICAL GROUP SINCE PATIENT IS [place] AND DOES NOT LIVE IN THE [facility]. CALLED JUDITH CAUSEY OF [facility] SEVERAL TIMES BUT UNABLE TO SPEAK TO HER. LEFT MESSAGE ON JUDITH CAUSEY VOICEMAIL INFORMING HER THAT PER LAN OF [facility], IT IS [facility]'S RESPONSIBILITY TO GIVE THE AUTHORIZATION FOR PATIENT'S HOME HEALTH. JUDITH CAUSEY AWARE OF THE NUMBER TO THE CHARGE NURSE ON THE NURSING FLOOR WHERE PATIENT IS. JUDITH STOKES AWARE. CHARGE NURSE MICHAEL AWARE THAT PATIENT'S FAMILY NEEDS TO BE TAUGHT HOW TO DO WOUND CARE.
[2017-06-04 16:00] VITALS: BP 97/64
--- NOTE | 2017-06-04 16:40 | NUR ---
RECEIVED A CALL FROM BONITA FROM [facility]. SHE SAID THEY HAVE NO NURSE TO DO DAILY DRESSING CHANGED. PHONE [phone].
--- NOTE | 2017-06-04 17:00 | NUR ---
PT STATED PAIN 6/10 ON BACK. ADMINISTERED [facility] FOR PAIN. PT TOLERATED MEDS WELL. INFORMED PT OF WOUND CARE TEACHING TO AND NEED TO RETURN DEMONSTRATION BEFORE D/C. PT VERBALIZED UNDERSTANDING AND STATED SHE WILL HAVE HER COME TOMORROW AND LEARN WOUND CARE. WHEN ASKED IF PT NEEDED ANYTHING RIGHT NOW OR HAD QUESTIONS PT SAID NO. WILL CONTINUE TO MONITOR.
--- NOTE | 2017-06-04 19:25 | NUR ---
ENDORSED PT TO SUPERVISOR HOT DIP TINNING NURSE AT BEDSIDE FOR CONTINUITY OF CARE. PT IS AWAKE AND ORIENTED. IN STABLE CONDITION.
--- NOTE | 2017-06-04 19:26 | NUR ---
RECEIVED REPORT FROM DAY SHIFT NURSE AT BEDSIDE. AAOX4. NO C/O PAIN. IV TO RIGHT HAND #22G, TKO. NO DISTRESS NOTED. DISCUSSED PLAN OF CARE. PT VERBALIZED UNDERSTANDING. CALL LIGHT WITHIN REACH. WILL CONTINUE TO MONITOR.
[2017-06-04 20:00] VITALS: BP 98/68
--- NOTE | 2017-06-04 21:20 | NUR ---
PT LYING IN BED COMFORTABLY. NO C/O PAIN. CALL LIGHT WITHIN REACH.
--- NOTE | 2017-06-04 23:45 | NUR ---
PT C/O PAIN AT THE IV SITE. REMOVED IV CANNULA. TIP INTACT.
[2017-06-05] VITALS: BP 97/71
--- NOTE | 2017-06-05 00:30 | NUR ---
PIV INSERTED TO LEFT FA #22G. GOOD FLUSH AND BLOOD RETURN. PROCEDURE TOLERATED WELL.
[2017-06-05] MEDS: Z-GUARD PASTE TP SCH ×2 (01:00→13:00)
[2017-06-05] MEDS: HYDROcodone/APAP 5/325 MG 1 TAB TAB PO PRN ×2 (02:42→22:07)
--- NOTE | 2017-06-05 03:00 | NUR ---
PT SLEEPING. NO SIGNS OF DISTRESS NOTED. CALL LIGHT WITHIN REACH.
--- NOTE | 2017-06-05 05:12 | NUR ---
PT LYING COMFORTABLY IN BED. NO C/O PAIN. CALL LIGHT WITHIN REACH
[2017-06-05] MEDS: BLOOD GLUCOSE MONITORING 1 DEV DEV FS SCH ×4 (05:43→20:33)
[2017-06-05] MEDS: VANCOMYCIN 1GM/DEXT 5% PREMIX 200 ML IV SCH ×3 (05:46→22:00)
[2017-06-05] MEDS: INSULIN LISPRO SLIDING SCALE 100 UNITS/ML VIAL SUBQ PRN ×4 (06:43→20:56)
[2017-06-05 06:59] LABS: BASOPHILS # (AUTO) 0.1 K/uL (0.00-0.22); BASOPHILS % (AUTO) 1.2 % (0.0-2.0); EOSINOPHILS # (AUTO) 0.1 K/uL (0-0.4); EOSINOPHILS % (AUTO) 1.4 % (0.0-4.0); HEMATOCRIT 32.3 % (36-48); LYMPHOCYTES # (AUTO) 2.2 K/uL (2.5-16.5); LYMPHOCYTES % (AUTO) 26.6 % (20.5-51.1); MEAN CORPUSCULAR HEMOGLOBIN 32 pg (27-31); MEAN CORPUSCULAR HGB CONC 34 g/dL (33-37); MEAN CORPUSCULAR VOLUME 93 fL (80-94); MONOCYTES # (AUTO) 0.7 K/uL (0.8-1.0); MONOCYTES % (AUTO) 8.3 % (1.7-9.3); NEUTROPHILS # (AUTO) 5.3 K/uL (1.8-7.7); NEUTROPHILS % (AUTO) 62.5 % (42.2-75.2); PLATELET COUNT (AUTO) 289 K/uL (140-450); RED BLOOD CELL COUNT(AUTO) 3.47 MIL/uL (4.20-5.40); RED CELL DISTRIBUTION WIDTH 12.8 % (11.6-13.7); WHITE BLOOD COUNT (AUTO) 8.4 K/uL (4.8-10.8)
[2017-06-05 07:07] LABS: ANION GAP 6.4 (8-16); CARBON DIOXIDE 31.3 mmol/L (21-32); CREATININE 0.4 mg/dL (0.6-1.3); POTASSIUM 3.7 mmol/L (3.5-5.1)
--- NOTE | 2017-06-05 07:23 | NUR ---
ENDORSED PT TO DAY SHIFT NURSE. PT IN STABLE CONDITION.
--- NOTE | 2017-06-05 07:30 | NUR ---
RECEIVED PT REPORT AT BEDSIDE FROM NIGHT NURSE. PT IS AAOX4 AND STATES BACK PAIN AT 9/10. WILL ADMINISTER ORDERED PRN PAIN MEDICATION. PT SHOWS NO S/S OF ACUTE DISTRESS ON ROOM AIR. CLEAN AND INTACT IV WAS NOTED ON THE RIGHT FOREARM WITH IVF'S INFUSING WELL. DISCUSSED POC WITH PT AND HE VERBALIZED UNDERSTANDING. THE BED IS IN LOW POSITION WITH CALL LIGHT WITHIN REACH. WILL CONTINUE TO MONITOR.
[2017-06-05 07:38] VITALS: BP 89/56
[2017-06-05] MEDS: ABDOMINAL PAD TP SCH (09:00)
[2017-06-05] MEDS: PIOGLITAZONE 30 MG TAB PO SCH (09:04)
[2017-06-05] MEDS: metFORMIN 500 MG TAB PO SCH ×2 (09:04→20:55)
[2017-06-05] MEDS: ASCORBIC ACID 500 MG TAB PO SCH (09:04)
[2017-06-05] MEDS: HYDROmorphone 1 MG/ML AMP IVP PRN ×2 (09:06→16:11)
--- NOTE | 2017-06-05 09:10 | NUR ---
ADMINISTERED SCHEDULED MEDICATIONS WELL DILAUDID 1 MG IVP FOR BACK PAIN. PT SHOWS NO S/S OF ACUTE DISTRESS ON ROOM AIR. WILL CONTINUE TO MONITOR.
--- NOTE | 2017-06-05 09:15 | NUR ---
WOUND DRX WAS NOT CHANGED. WAITING FOR TO COME IN AND TEACH HIM HOW TO PERFORM WOUND CARE.
--- NOTE | 2017-06-05 12:00 | NUR ---
PT IS SLEEPING AND SHOWS NO S/S OF ACUTE DISTRESS ON ROOM AIR. THE BED IS LOWERED WITH CALL LIGHT WITHIN REACH.
[2017-06-05] MEDS: NON ADHERENT DRESSING TP SCH (13:00)
[2017-06-05] MEDS: GAUZE TP SCH (13:00)
--- NOTE | 2017-06-05 13:35 | NUR ---
06/05/17 RD FOLLOW UP COMPLETED. PLEASE REFER TO NUTRITION PROGRESS NOTE UNDER CARE ACTIVITY FOR ESTIMATED NUTRITIONAL NEEDS. RD RECOMMENDATIONS: 1. CONTINUE 60G CCHO DIET 2. CONTINUE VITAMIN C 3. RD TO FOLLOW UP WITHIN 3-5 DAYS; MODERATE RISK CHASIDY COOPER MBA, RD
--- NOTE | 2017-06-05 14:40 | NUR ---
PT'S IS AT BEDSIDE AND WAS EDUCATED ON WOUND CARE. PT DRX WAS CHANGED. ENFORCED HAND HYGIENE BEFORE CLEANSING WOUND WITH NS, PATTED DRY WOUND WITH GAUZE, PACKED WITH IODOFORM, ADAPTIC DRX APPLIED WITH GAUZE AND COVERED WITH ABD PAD. PT TOLERATED ACTIVITY WELL. PT DENIED PAIN. VERBALIZED UNDERSTANDING OF WOUND CARE. ALL QUESTIONS WERE ANSWERED. PT BED IS LOWERED WITH CALL LIGHT WITHIN REACH. WILL CONTINUE TO MONITOR.
[2017-06-05 16:11] VITALS: BP 92/74
--- NOTE | 2017-06-05 16:50 | NUR ---
PT IS SLEEPING AND SHOWS NO S/S OF ACUTE DISTRESS ON ROOM AIR. WILL CONTINUE TO MONITOR.
--- NOTE | 2017-06-05 19:00 | NUR ---
PT IS SLEEPING AND SHOWS NO S/S OF ACUTE DISTRESS ON ROOM AIR. GAVE REPORT AT BEDSIDE TO NIGHT NURSE PT ENDORSED IN STABLE CONDITION.
[2017-06-05 20:00] VITALS: BP 98/68
--- NOTE | 2017-06-05 20:00 | NUR ---
ASSUMED CARE. RECEIVED AWAKE,ALERT,ORIENTED. AFEBRILE, NOT IN ACUTE DISTRESS. DENIES ANY PAIN OR DISCOMFORT AT THIS TIME. WITH IV FLUID NS @ TKO TO THE LEFT FA #22 IV LINE. DRESSING TO THE MIDDLE BACK CLEAN DRY AND INTACT. SAO2=98% ON ROOM AIR. VS STABLE WILL CONTINUE TO MONITOR. NEEDS ATTENDED.
--- NOTE | 2017-06-05 20:33 | NUR ---
FINGER STICK BLOOD SUGAR DEFVC=375. WILL COVER WITH HUMALOG INSULIN.
--- NOTE | 2017-06-05 20:56 | NUR ---
DUE MEDICATION AND HUMALOG 6 UNITS SQ GIVEN PER SLIDING SCALE. HS SNACK GIVEN AFTER.
--- NOTE | 2017-06-05 22:07 | NUR ---
DRESSING TO MIDDLE BACK CHANGED. COMPLAINED OF PAIN AFTER (04/18). DUE IV ANTIBIOTIC GIVEN. PATIENT ALSO MEDICATED WITH NORCO 5/325 MG PO REQUESTED FOR PAIN.
[2017-06-06] VITALS: BP 108/77
--- NOTE | 2017-06-06 | NUR ---
AWAKE,NOT IN ANY KIND OF DISTRESS. VERBALIZED TOTAL RELIEF OF PAIN AT THIS TIME. SIDE RAILS UP,CALL LIGHT WITHIN REACH. KEPT WARM AND COMFORTABLE. VS REMAIN STABLE. WILL CONTINUE TO MONITOR.
[2017-06-06] MEDS: Z-GUARD PASTE TP SCH ×2 (01:01→16:00)
--- NOTE | 2017-06-06 04:00 | NUR ---
ASLEEP, NO SIGNIFICANT CHANGE IN CONDITION. WILL CONTINUE TO MONITOR.
[2017-06-06] MEDS: VANCOMYCIN 1GM/DEXT 5% PREMIX 200 ML IV SCH ×2 (06:00→14:00)
[2017-06-06] MEDS: BLOOD GLUCOSE MONITORING 1 DEV DEV FS SCH ×3 (06:10→16:30)
--- NOTE | 2017-06-06 06:10 | NUR ---
LLBIAGQPN=[id number]. WILL COVER WITH HUMALOG INSULIN.
[2017-06-06] MEDS: INSULIN LISPRO SLIDING SCALE 100 UNITS/ML VIAL SUBQ PRN (06:18)
--- NOTE | 2017-06-06 06:18 | NUR ---
HUMALOG 6 UNITS SQ GIVEN FOR LA=456 PER SLIDING SCALE.
--- NOTE | 2017-06-06 06:30 | NUR ---
PT.ACCIDENTALLY PULLED OUT IV LINE. GAUGE 20 IV LINE ESTABLISHED TO THE LEFT HAND. IV ANTIBIOTIC RESTARTED AFTER.
[2017-06-06] MEDS: HYDROcodone/APAP 5/325 MG 1 TAB TAB PO PRN (06:36)
--- NOTE | 2017-06-06 06:36 | NUR ---
NORCO 5/325 MG PO GIVEN FOR PAIN ORDERED (03/18).
[2017-06-06 06:59] LABS: BASOPHILS # (AUTO) 0.1 K/uL (0.00-0.22); BASOPHILS % (AUTO) 1.3 % (0.0-2.0); EOSINOPHILS # (AUTO) 0.1 K/uL (0-0.4); EOSINOPHILS % (AUTO) 1.1 % (0.0-4.0); HEMOGLOBIN 11.7 g/dL (12.0-16.0); LYMPHOCYTES # (AUTO) 2.3 K/uL (2.5-16.5); LYMPHOCYTES % (AUTO) 27.5 % (20.5-51.1); MEAN CORPUSCULAR HEMOGLOBIN 32 pg (27-31); MEAN CORPUSCULAR HGB CONC 35 g/dL (33-37); MEAN CORPUSCULAR VOLUME 92 fL (80-94); MONOCYTES # (AUTO) 0.7 K/uL (0.8-1.0); MONOCYTES % (AUTO) 8.8 % (1.7-9.3); NEUTROPHILS # (AUTO) 5.1 K/uL (1.8-7.7); NEUTROPHILS % (AUTO) 61.3 % (42.2-75.2); PLATELET COUNT (AUTO) 289 K/uL (140-450); RED BLOOD CELL COUNT(AUTO) 3.69 MIL/uL (4.20-5.40); RED CELL DISTRIBUTION WIDTH 12.8 % (11.6-13.7); WHITE BLOOD COUNT (AUTO) 8.3 K/uL (4.8-10.8)
[2017-06-06 07:11] LABS: ANION GAP 6.6 (8-16); CARBON DIOXIDE 32.5 mmol/L (21-32); CREATININE 0.5 mg/dL (0.6-1.3); POTASSIUM 4.1 mmol/L (3.5-5.1)
--- NOTE | 2017-06-06 07:17 | NUR ---
ENDORSED CARE TO TASHA WOOD.
--- NOTE | 2017-06-06 07:20 | NUR ---
RECEIVED PT REPORT AT BEDSIDE FROM NIGHT NURSE. PT IS AAOX4 AND DENIES BACK PAIN. PT SHOWS NO S/S OF ACUTE DISTRESS ON ROOM AIR. CLEAN AND INTACT IV WAS NOTED ON THE L H WITH IVF'S INFUSING WELL. DISCUSSED POC WITH PT AND HE VERBALIZED UNDERSTANDING. THE BED IS IN LOW POSITION WITH CALL LIGHT WITHIN REACH. WILL CONTINUE TO MONITOR. Addendum: 06/06/17 at 0903 by Suzy Washington RN NOTED CLEAN DRY AND INTACT DRX ON THE MIDLINE OF BACK.
[2017-06-06 08:00] VITALS: BP 88/53
[2017-06-06] MEDS: ABDOMINAL PAD TP SCH (09:00)
[2017-06-06] MEDS: metFORMIN 500 MG TAB PO SCH (09:26)
[2017-06-06] MEDS: PIOGLITAZONE 30 MG TAB PO SCH (09:26)
[2017-06-06] MEDS: ASCORBIC ACID 500 MG TAB PO SCH (09:26)
--- NOTE | 2017-06-06 09:30 | NUR ---
ADMINISTERED SCHEDULED MEDICATIONS. PT TOLERATED WELL. DENIES PAIN. THE BED IS IN LOW POSITION WITH CALL LIGHT WITHIN REACH.
--- NOTE | 2017-06-06 09:40 | NUR ---
PT IS BEING SEEN BY DR Farheen VAUGHAN.
[2017-06-06] MEDS ORDERED: ACT30 PO (09:48)
[2017-06-06] MEDS ORDERED: VITC500 PO (09:48)
[2017-06-06] MEDS ORDERED: METF500T PO (09:48)
[2017-06-06] MEDS ORDERED: ACET-1182 PO (09:48)
[2017-06-06] MEDS ORDERED: TRAM50TA1 PO (09:48)
[2017-06-06] MEDS ORDERED: SULF-58 PO (09:50)
--- NOTE | 2017-06-06 10:30 | NUR ---
PT IS SLEEPING AND SHOWS NO S/S OF ACUTE DISTRESS ON ROOM AIR. BED IS IN LOW POSITION WITH CALL LIGHT WITHIN REACH.
--- NOTE | 2017-06-06 12:37 | NUR ---
PT IS TOLERATING DIET WELL. PT DENIES PAIN AND IS COMFORTABLY WATCHING TV AND TALKING ON THE PHONE. PT STATED SHE WILL CALL FAMILY TO COME IN TO DEMONSTRATE HOW TO PERFORM WOUND CARE.
[2017-06-06] MEDS: GAUZE TP SCH (13:00)
--- NOTE | 2017-06-06 13:00 | NUR ---
PT STATES SHE WILL LEAVE CALL MOTHER AND SON TO COME IN TO PERFORM WOUND DRX.
--- NOTE | 2017-06-06 13:30 | NUR ---
PT STATES SHE WILL CALL FAMILY AGAIN BC FAMILY DID NOT [address] SUPERVISOR PHONE TO NOTIFY TO COME PICK HER UP.
--- NOTE | 2017-06-06 14:00 | NUR ---
PT REFUSED ABX AND STATED, "I DON'T WANT TO STAY LONGER BC MY IS COMING TO GET ME." PT WAS ENCOURAGE TO HAVE LAST DOSE OF ABX, SHE WAS MADE AWARE IT WILL TAKE ONE HOUR AND THIRTY MINUTES AND WOULD HELP IMPROVE HER INFECTION. PT STATED SHE WILL CONTINUE HER ABX PO THAT WAS PRESCRIBED BY DR. Farheen VAUGHAN. PT WAS MADE AWARE OF THE BENEFITS AND COMPLICATIONS IF SHE WERE NOT TO RECEIVE MEDICATION. PT VERBALIZED UNDERSTANDING AND STATED ," I'LL TAKE THE ABX THAT WERE PRESCRIBED AND IF I HAVE SIGNS OF INFECTION I WILL COME BACK TO THE ER."
--- NOTE | 2017-06-06 14:30 | NUR ---
PT STATED WILL COME IN TO PICK HER UP AND CAN PERFORM WOUND DRX CHANGE.
--- NOTE | 2017-06-06 15:00 | NUR ---
PT STATED SHE DOES NOT KNOW WHEN WILL COME IN TO PERFORM DRX CHANGE.
--- NOTE | 2017-06-06 15:30 | NUR ---
PT'S ARRIVED ON UNIT. PT WAS EDUCATED ON PERFORMING WOUND CARE. ENFORCED THE IMPORTANCE OF HAND HYGIENE BEFORE PERFORMING WOUND CARE. ALSO, TO PERFORM HAND HYGIENE IN BETWEEN WOUND CARE: AFTER DISCARDING DIRTY DRX AND APPLYING NEW DRX. PT PERFORMED HAND HYGIENE AND PUT ON GLOVES, DISCARDED OLD DRX AND TOOK OUT PACKING OF IODOFORM. PT'S DISCARDED DIRTY GLOVES THEN PERFORMED HAND HYGIENE AND PLACED ON NEW CLEAN GLOVES AND CLEANSED WOUND WITH NS, PAT DRY, PACKED WOUND WITH IODOFORM, COVERED WITH ADAPTIC DRESSING AND ABD PAD. PT AND FAMILY VERBALIZED UNDERSTANDING TO CHANGE DRX QD AND PRN IF SOILED. PT AND PT FAMILY WERE MADE AWARE OF SIGNS AND SYMPTOMS TO WATCH FOR CONCERNING INFECTION SUCH BUT NOT LIMITING TO YELLOW/GREEN PUS, FEVER, PAIN NOT TAKEN AWAY WITH PAIN MEDICATION, CHILLS, AND INCREASE HR AND BREATHING.
[2017-06-06] MEDS: NON ADHERENT DRESSING TP SCH (16:00)
--- NOTE | 2017-06-06 16:00 | NUR ---
PT HAS BEEN DISCHARGED. ALL DISCHARGE INSTRUCTIONS AND PRESCRIPTIONS WERE GIVEN. ALL PAPERWORK SIGNED. ALL QUESTIONS ANSWERED. PT AND PT'S VERBALIZED UNDERSTANDING. ALL BELONGINGS AND PRESCRIPTIONS IN PATIENT'S POSSESSION. PT WAS GIVEN TWO WEEKS WORTH OF WOUND CARE MATERIALS. PT IS AWARE TO MAKE AN APPOINTMENT WITH DR NICOLE BECK TO FOLLOW UP. IV WAS DISCONTINUED WITH CANNULA INTACT. WRISTBANDS REMOVED. PT WAS OFFERED WHEELCHAIR HOWEVER PREFERRED TO AMB OFF UNIT. PT AMB OFF UNIT WITH CHARISSE RN AND PRESENT AT SIDE WITH A STEADY GAIT. PT IN STABLE CONDITION.
[2017-06-07] MEDS ORDERED: VANCOMYCIN 1GM/DEXT 5% PREMIX 200 ML IV SCH (06:00)
== END 2017-06-06 16:00 | disposition home health service (06) | DRG 720 ==
LOC: MED 17:49 → MTU 21:13
PROVIDERS: ADMIT Preventive Medicine Preventive Medicine/Occupational Environmental Medicine; ATTEND Preventive Medicine Preventive Medicine/Occupational Environmental Medicine
PROC: 0H96XZZ Drainage of Back Skin, External Approach (ICD-10-PCS; 2017-05-31)
PROC: 0W9K0ZZ Drainage of Upper Back, Open Approach (ICD-10-PCS; 2017-06-03)
PROC: 0HB6XZZ Excision of Back Skin, External Approach (ICD-10-PCS; 2017-06-03)
PROC: 0HB6XZX Excision of Back Skin, External Approach, Diagnostic (ICD-10-PCS; principal; 2017-06-03 07:30)
DX: A41.9 Sepsis, unspecified organism (principal); E11.10 Type 2 diabetes mellitus with ketoacidosis without coma; E87.0 Hyperosmolality and hypernatremia; E87.1 Hypo-osmolality and hyponatremia; D64.9 Anemia, unspecified; E87.6 Hypokalemia; E88.09 Other disorders of plasma-protein metabolism, not elsewhere classified; L03.312 Cellulitis of back [any part except buttock and flank]; E83.52 Hypercalcemia; W01.0XXA Fall on same level from slipping, tripping and stumbling without subsequent striking against object, initial encounter; R03.0 Elevated blood-pressure reading, without diagnosis of hypertension; B95.61 Methicillin susceptible Staphylococcus aureus infection as the cause of diseases classified elsewhere; L02.212 Cutaneous abscess of back [any part, except buttock and flank]; Z88.6 Allergy status to analgesic agent; Z91.018 Allergy to other foods; Y93.89 Activity, other specified; Y92.89 Other specified places as the place of occurrence of the external cause; Y99.8 Other external cause status; Z98.891 History of uterine scar from previous surgery
CPT/HCPCS: 36415; 36600; 72129; 76881; 80048; 80053; 80202; 81001; 82803; 82948; 83605; 85025; 85610; 85651; 86140; 87040; 87070; 87075; 87077; 87081; 87086; 87186; 87205; 93005; 96365; 96367; 96375; 96376; 99285; J1170; J1815; J2001; J2175; J2250; J2270; J2405; J2543; J2704; J3010; J3370; J3490; J7030; J7060; Q0092; Q9967

== ENCOUNTER 2018-12-20 08:39 | Emergency (ER) | payer MEDICAID ==
[~2018-12-20] VITALS: Ht 157.5 cm; Wt 65.8 kg
[~2018-12-20 08:39] MED LIST changes: +ACET-1182 PO; +ACT30 PO; +SULF-58 PO; +TRAM50TA1 PO; +VITC500 PO
[2018-12-20 08:53] VITALS: BP 118/86
--- NOTE | 2018-12-20 09:00 | NUR ---
c/o sharp shooting pain from left foot radiating left tib/fib area x 5 days s/p catering portable table fall onto left foot no discoloration, no edema, no open wounds noted---ambulatory with steady gait
[2018-12-20] MEDS ORDERED: HYDROcodone/APAP 5/325 MG 1 TAB TAB PO ONE (09:15)
--- NOTE | 2018-12-20 09:25 | NUR ---
XRAY COMPLETED AT BEDSIDE
--- NOTE | 2018-12-20 09:58 | NUR ---
Patient discharged with v/s stable. Written and verbal after care instructions given and explained. Patient alert, oriented and verbalized understanding of instructions. Ambulatory with steady gait. All questions addressed prior to discharge. ID band removed. Patient advised to follow up with PMD. Rx of tylenol given. Patient educated on indication of medication including possible reaction and side effects. Opportunity to ask questions provided and answered. instructed to keep foot elevated when at rest---ice pack x 5 mins at a time f/u with pmd
[2018-12-20 09:59] VITALS: BP 126/90
== END 2018-12-20 09:58 | disposition home or self-care (01) ==
LOC: MED 08:39
DX: M79.672 Pain in left foot (principal); Z91.018 Allergy to other foods; Z88.8 Allergy status to other drugs, medicaments and biological substances; E11.9 Type 2 diabetes mellitus without complications; Z79.84 Long term (current) use of oral hypoglycemic drugs; Z79.1 Long term (current) use of non-steroidal anti-inflammatories (NSAID); Z88.6 Allergy status to analgesic agent; Z79.891 Long term (current) use of opiate analgesic; W20.1XXA Struck by object due to collapse of building, initial encounter; Y93.89 Activity, other specified; Y92.89 Other specified places as the place of occurrence of the external cause; Y99.8 Other external cause status
CPT/HCPCS: 73630; 82948; 99283; Q0092